=== PATIENT | female | born 1970 ===

== ENCOUNTER 2018-07-09 18:46 | Emergency (ER) | payer BC, OTHER ==
[~2018-07-09] VITALS: Ht 162.6 cm; Wt 69.9 kg
--- OUTSIDE RECORDS SUMMARY | 2018-07-09 18:53 | XMS REPORT ---
Author Author JEN GILLILAND [facility] [place] Address [address] [place] [address] Care Team Providers Care Piper Helper Name Role Phone JEN GILLILAND Unavailable PROBLEMS Type Condition ICD9-CM Code FLJ68-FA Code Onset Dates Condition Status SNOMED Code Problem Difficulty swallowing liquids R13.10 Active 638555934 Problem Gastric reflux K21.9 Active 750147360 Problem Anxiety F41.9 Active 34374536 ALLERGIES Substance Reaction Event Type Date Status Ibuprofen angioedema Drug Allergy May, Active ENCOUNTERS Encounter Location Date Diagnosis [facility] [address] [id number] [place] [address] Jun Shortness of breath R06.02 ; Gastric reflux K21.9 and Difficulty swallowing liquids R13.10 [facility] [address] [id number] [place] [address] May [facility] [address] [id number] [place] [address] May Gastric reflux K21.9 and H. pylori infection A04.8 [facility] [address] [facility] [id number] [place] [address] May, [facility] [address] [id number] [place] [address] Mar Left breast lump N63.20 [facility] [address] [id number] [address] January, Dysuria R30.0 and Recurrent UTI (urinary tract infection) N39.0 [facility] [address] [id number] [place] [address] Sep, Multiple complaints R68.89 [facility] [address] [id number] [place] [address] Jun, Urinary frequency R35.0 ; Multiple complaints R68.89 and Anxiety F41.9 [facility] [id number] [place] [address] Mar, Lump of left breast N63 ; Well woman exam Z01.419 and Uterine leiomyoma, unspecified location D25.9 [facility] [address]00565100[place] [address] Nov, Bronchitis J40 [facility] [address] [place] [address] [id number][place] [id number] Oct, [facility] [address]65100[place] [address] Oct, Sore throat J02.9 and Acute upper respiratory infection J06.9 [place] [address] [id number] SPRINGS[place] [address] Jul, Encounter for immunization Z23 [place] [address] [id number] [place] [address] Jun, Dizziness R42 [place] [address] [id number] SPRINGS[place] [address] Jun, Dizziness R42 and Anemia due to other cause, not classified D64.89 [facility] [address] [id number] [place]INGS[place] [id number] January, Anemia due to other cause, not classified D64.89 and Abnormal urine R82.90 [facility] [address] [facility] [id number], [place] [id number] Dec, [facility] [address] [id number] [place] [address] Dec, Abnormal urine R82.90 ; Acute cystitis with hematuria N30.01 and Iron deficiency E61.1 [facility] [address] [id number] SPRINGS[place] [address] Dec, [facility] [address] [facility] [id number] [place] [id number] Dec, Anemia due to other cause, not classified D64.89 [facility] [address] [place] [id number] [address] Dec, [place] [address] [id number] SPRINGS[place] [address] Dec, Anemia due to other cause, not classified D64.89 [place] [address] [id number] SPRINGS[place] [id number] Dec, [place] [address] [id number] [place] [id number] Dec, Anemia due to other cause, not classified D64.[address] [id number] SPRINGS, [place] [address] Dec, Gastroesophageal reflux disease, esophagitis presence not specified K21.9 and Anemia due to other cause, not classified D64.89 [place] [address] [id number] SPRINGS[place] [address] Nov, Prolonged menstrual cycle N92.1 ; Dizziness R42 ; GERD ( gastroesophageal reflux disease) K21.9 ; Chest pain R07.9 ; Fatigue R53.83 and Chills (without fever) R68.83 [place] [address] [id number] SPRINGS[place] [address] Nov, Prolonged menstrual cycle N92.1 ; Dizziness R42 ; GERD ( gastroesophageal reflux disease) K21.9 ; Chest pain R07.9 ; Fatigue R53.83 and Chills (without fever) R68.83 [place] [address] [id number] [place]INGS[place] [address] Jun, Encounter for immunization Z23 [place] [address] [id number] SPR[place] [id number] Jun, Allergic rhinitis, unspecified allergic rhinitis type J30.9 and Post-nasal drip R09.[address] [facility] [address] [id number] [place] [address] Apr, Chest pain 786.50 and GERD (gastroesophageal reflux disease) 530.[address] [id number] [place] [address] Feb, Well woman exam V70.0 ; Pap smear for cervical cancer screening V76.2 and Breast cancer screening V76.[address] [id number], [place] [address] 08 Feb, 2015 Encounter to establish care V65.8 IMMUNIZATIONS No Known Immunizations SOCIAL HISTORY Never Assessed REASON FOR VISIT ER f/u-SOB, chest pressure-Patient states she went to ER Wednesday, states her legs were weak. She was dx with acid reflux and anxiety, pt states she is having SOB and burping today but no pain. Ashley RN PLAN OF CARE Activity Details Follow Up 4 Weeks Reason:GERD F/U Pending Test H PYLORI (IN HOUSE) VITAL SIGNS Height 5 ft 3 in in 2018-06-15 Weight 153.6 lbs 2018-06-15 Temperature 98.1 degrees Fahrenheit 2018-06-15 Heart Rate 77 bpm 2018-06-15 Respiratory Rate 16 2018-06-15 Oximetry 99 % 2018-06-15 BMI 27.21 kg/m2 2018-06-15 Blood pressure systolic 110 mmHg 2018-06-15 Blood pressure diastolic 70 mmHg 2018-06-15 MEDICATIONS Medication Instructions Dosage Frequency Start Date End Date Duration Status Pantoprazole Sodium 20 mg Orally Once a day 1 tablet 24h May, 30 day(s) Active Amoxicillin 500 mg Orally 2 times a day 2 tablet 12h May, Jun, 14 days Active Clarithromycin 500 mg Orally every 12 hrs 1 tablet 12h May,Jun 14 days Active RESULTS Name Result Date Reference Range LIPASE 2018-06-15 LIPASE 29 7-60 AMYLASE 2018-06-15 AMYLASE 40 21-101 PROCEDURES Procedure Date Ordered Result Body Site IMMUNOASSAY,INFECTIOUS AGENT Jun 15, 2018 ASSAY OF AMYLASE Jun 15, 2018 ASSAY OF LIPASE Jun 15, 2018 INSTRUCTIONS MEDICATIONS ADMINISTERED No Known Medications MEDICAL (GENERAL) HISTORY Type Description Date Medical History acid reflux Medical History seasonal allergies Medical History anemia Surgical History No Surgical history information Hospitalization History Abnormal vaginal bleeding
--- OUTSIDE RECORDS SUMMARY | 2018-07-09 18:53 | XMS REPORT ---
Author Author MARIANNE JOSE [facility] Address [address] [place] [address] Care Team Providers Care Compressor Station Chief Engineer Name Role Phone MARIANNE JOSE Unavailable PROBLEMS Type Condition ICD9-CM Code PNH24-UO Code Onset Dates Condition Status SNOMED Code Problem Difficulty swallowing liquids R13.10 Active 358044482 Problem Gastric reflux K21.9 Active 980994866 Problem Anxiety F41.9 Active 85841519 ALLERGIES No Information ENCOUNTERS Encounter Location Date Diagnosis [facility] [address] [id number] [place] [address] 05 Jun Shortness of breath R06.02 ; Gastric reflux K21.9 and Difficulty swallowing liquids R13.10 [facility] [address] [id number] [place] [address] 25 May [place] [address] [id number] [place] [address] 19 May Gastric reflux K21.9 and H. pylori infection A04.8 [facility] [address] [facility] [id number], [place] [address] May, [facility] [address] [id number] [place] [address] Mar Left breast lump N63.20 [facility] [address] [id number] [address] January, Dysuria R30.0 and Recurrent UTI (urinary tract infection) N39.0 [facility] [address] [id number] [place] [address] Sep, Multiple complaints R68.89 [facility] [address] [id number] [place] [address] Jun, Urinary frequency R35.0 ; Multiple complaints R68.89 and Anxiety F41.9 [facility] [address] [place], [place] [id number] [place] [address] Mar, Lump of left breast N63 ; Well woman exam Z01.419 and Uterine leiomyoma, unspecified location D25.9 [facility] [address]00565100[place], [place] [address] Nov, Bronchitis J40 [facility] [address] [place] [address] [id number], [place] [id number] Oct, [facility] [address] [place] [id number] Oct, Sore throat J02.9 and Acute upper respiratory infection J06.9 [place] [address] [id number] [place] [address] Jul, Encounter for immunization Z23 [facility] [address] [id number] [place] [id number] Jun, Dizziness R42 [place] [id number] [place] [address] Jun, Dizziness R42 and Anemia due to other cause, not classified D64.89 [facility] [address] [facility] [id number] [place] [address] January, Anemia due to other cause, not classified D64.89 and Abnormal urine R82.90 [facility] [address] [facility] [id number][place] [id number] Dec, [facility] [address] [id number] [place] [phone] Dec, Abnormal urine R82.90 ; Acute cystitis with hematuria N30.01 and Iron deficiency E61.1 [facility] [address] [id number] [place] [address] Dec, [facility] [id number] [place] [address] Dec, Anemia due to other cause, not classified D64.89 [facility] [address] [facility] [id number] [place] [address] Dec, [place] [address] [id number] [place] [address] Dec, Anemia due to other cause, not classified D64.89 [place] [address] [id number] [place] [address] Dec, [place] [address] [id number] [place] [address] Dec, Anemia due to other cause, not classified D64.89 [facility] [address] [facility] [id number] [place] [id number] Dec, Gastroesophageal reflux disease, esophagitis presence not specified K21.9 and Anemia due to other cause, not classified D64.89 [place] [address] [id number] [place] [address] Nov, Prolonged menstrual cycle N92.1 ; Dizziness R42 ; GERD ( gastroesophageal reflux disease) K21.9 ; Chest pain R07.9 ; Fatigue R53.83 and Chills (without fever) R68.83 [place] [address] [id number] [place] [address] Nov, Prolonged menstrual cycle N92.1 ; Dizziness R42 ; GERD ( gastroesophageal reflux disease) K21.9 ; Chest pain R07.9 ; Fatigue R53.83 and Chills (without fever) R68.83 [place] [address] [id number] [place] [address] Jun, Encounter for immunization Z23 [place] [address] [id number] [place] [address] Jun, Allergic rhinitis, unspecified allergic rhinitis type J30.9 and Post-nasal drip R09.[address] [id number], [place] [address] Apr, Chest pain 786.50 and GERD (gastroesophageal reflux disease) 530.81 [place] [id number] [place] [id number] Feb, Well woman exam V70.0 ; Pap smear for cervical cancer screening V76.2 and Breast cancer screening V76.10 [place] [id number] [place] [id number] Feb, Encounter to establish care V65.8 IMMUNIZATIONS No Known Immunizations SOCIAL HISTORY Never Assessed REASON FOR VISIT Requests return call PLAN OF CARE VITAL SIGNS MEDICATIONS No Known Medications RESULTS No Results PROCEDURES No Known procedures INSTRUCTIONS MEDICATIONS ADMINISTERED No Known Medications MEDICAL (GENERAL) HISTORY Type Description Date Medical History acid reflux Medical History seasonal allergies Medical History anemia Surgical History No Surgical history information Hospitalization History Abnormal vaginal bleeding
--- OUTSIDE RECORDS SUMMARY | 2018-07-09 18:53 | XMS REPORT ---
Author BRADEN Jesus Organization [employer] Address Unknown Phone Unavailable Care Team Providers Care Lard Renderer Name Role Phone BRADEN BROWN CP Unavailable Allergies, Adverse Reactions, Alerts Substance Reaction Event Type Tylenol hives Drug Allergy Problems Problem Type Condition Code Onset Dates Condition Status Assessment Allergic rhinitis, unspecified allergic rhinitis type J30.9 Active Assessment Post-nasal drip R09.82 Active Medications Medication Code System Code Instructions Start Date End Date Status Dosage Cetirizine HCl [facility] [address]-42 10 MG Orally Once a day Jul 22, 2015 Oct 20, 2015 1 tablet as needed Prevacid 24HR [facility] [address]-71 15 MG Orally Once a day 1 capsule Procedures Procedure Coding System Code Date Office Visit, Est Pt., Level 3 CPT-4 19328 Jul 22, 2015 MEASURE BLOOD OXYGEN LEVEL CPT-4 64152 Jul 22, 2015 Vital Signs Date/Time: Jul 22, 2015 Temperature 98.0 F Weight 157 lbs Height 5 ft 3 in in Oximetry 98 % Blood Pressure Diastolic 76 mmHg Blood Pressure Systolic 120 mmHg Cardiac Monitoring Heart Rate 88 bpm BMI 27.81 Index Results No Known Results Summary Purpose [employer] Submission
--- OUTSIDE RECORDS SUMMARY | 2018-07-09 18:53 | XMS REPORT ---
Author Author MARIANNE JOSE [facility] Address [address] [place] [address] Care Team Providers Care Administrative Services Assistant Name Role Phone MARIANNE JOSE Unavailable PROBLEMS Type Condition ICD9-CM Code GOZ22-ZN Code Onset Dates Condition Status SNOMED Code Problem Gastric reflux K21.9 Active 774513241 Problem Anxiety F41.9 Active 37459797 ALLERGIES No Information ENCOUNTERS Encounter Location Date Diagnosis [facility] [address] [id number] [place] [address] May [facility] [address] [id number] [place] [address] May Gastric reflux K21.9 and H. pylori infection A04.8 [facility] [address] [facility] [id number] [address] May, [facility] [address] [id number] [place] [address] Mar Left breast lump N63.20 [facility] [id number] [place] [address] January, Dysuria R30.0 and Recurrent UTI (urinary tract infection) N39.0 [facility] [address] [id number] [place] [address] Sep, Multiple complaints R68.89 [facility] [address] [id number] [place] [address] Jun, Urinary frequency R35.0 ; Multiple complaints R68.89 and Anxiety F41.9 [facility] [address] [id number] [place] [address] Mar, Lump of left breast N63 ; Well woman exam Z01.419 and Uterine leiomyoma, unspecified location D25.9 [facility] [address] [facility] [id number], [place] [address] Nov, Bronchitis J40 [facility] [address] [place] [address] [id number], [place] [id number] 10 Oct, 2016 [facility] [address] [place] [id number] [address] 08 Oct, 2016 Sore throat J02.9 and Acute upper respiratory infection J06.9 [place] [address] [id number] [place] [address] Jul, Encounter for immunization Z23 [place] [address] [id number] [place] [address] Jun, Dizziness R42 [place] [address] [id number] [place] [address] Jun, Dizziness R42 and Anemia due to other cause, not classified D64.89 [place] [address] [id number] [place] [address] January, Anemia due to other cause, not classified D64.89 and Abnormal urine R82.90 [facility] [address] [facility] [id number], [place] [id number] Dec, [facility] [address] [id number] [place] [address] Dec, Abnormal urine R82.90 ; Acute cystitis with hematuria N30.01 [address] Iron deficiency E61.1 [facility] [address] [id number] [place] [address] Dec, [facility] [id number] [place] [address] Dec, Anemia due to other cause, not classified D64.89 [facility] [address] [place] [id number] [place] [address] Dec, [place] [address] [id number] [place] [address] Dec, Anemia due to other cause, not classified D64.89 [place] [address] [id number] [place] [address] Dec, [place] [address] [id number] [place] [address] Dec, Anemia due to other cause, not classified D64.89 [facility] [address] [facility] [id number] [place] [address] Dec, Gastroesophageal reflux disease, esophagitis presence not specified K21.9 and Anemia due to other cause, not classified D64.89 [place] [address] [id number] [place] [address] Nov, Prolonged menstrual cycle N92.1 ; Dizziness R42 ; GERD ( gastroesophageal reflux disease) K21.9 ; Chest pain R07.9 ; Fatigue R53.83 and Chills (without fever) R68.83 [place] [address] [id number] [place] [address] Nov, Prolonged menstrual cycle N92.1 ; Dizziness R42 ; GERD ( gastroesophageal reflux disease) K21.9 ; Chest pain R07.9 ; Fatigue R53.83 and Chills (without fever) R68.83 [place] [address] [id number] [place] [address] Jun, Encounter for immunization Z23 [place] [address] [id number] [place] [address] Jun, Allergic rhinitis, unspecified allergic rhinitis type J30.9 and Post-nasal drip R09.82 [facility] [address] [id number], [place] [address] Apr, Chest pain 786.50 and GERD (gastroesophageal reflux disease) 530.81 [facility] [address] [place] [address] [id number], [place] [id number] Feb, Well woman exam V70.0 ; Pap smear for cervical cancer screening V76.2 and Breast cancer screening V76.[address] [id number] [place] [id number] 08 Feb, 2015 Encounter to establish care V65.8 IMMUNIZATIONS No Known Immunizations SOCIAL HISTORY Never Assessed REASON FOR VISIT ER note PLAN OF CARE VITAL SIGNS MEDICATIONS Unknown Medications RESULTS No Results PROCEDURES No Known procedures INSTRUCTIONS MEDICATIONS ADMINISTERED No Known Medications MEDICAL (GENERAL) HISTORY Type Description Date Medical History acid reflux Medical History seasonal allergies Medical History anemia Surgical History No Surgical history information Hospitalization History Abnormal vaginal bleeding
--- OUTSIDE RECORDS SUMMARY | 2018-07-09 18:53 | XMS REPORT ---
Author Author MARIANNE JOSE [facility] Address [address] [place] [address] Care Team Providers Care Bead Cutter Name Role Phone MARIANNE JOSE Unavailable PROBLEMS Type Condition ICD9-CM Code [id number] Code Onset Dates Condition Status SNOMED Code Problem Anxiety F41.9 Active 06003699 ALLERGIES Substance Reaction Event Type Date Status Ibuprofen angioedema Drug Allergy Mar, Active ENCOUNTERS Encounter Location Date Diagnosis [facility] [address] [id number] [place] [address] Mar Left breast lump N63.20 [facility] [address] [place] [id number] [place] [address] January, Dysuria R30.0 and Recurrent UTI (urinary tract infection) N39.0 [facility] [address] [place] [id number] [place] [address] Sep, Multiple complaints R68.89 [facility] [address] [place], [place] [id number] [address] Jun, Urinary frequency R35.0 ; Multiple complaints R68.89 and Anxiety F41.9 [facility] [address] [place], [place] [id number] [place] [address] Mar, Lump of left breast N63 ; Well woman exam Z01.419 and Uterine leiomyoma, unspecified location D25.9 [facility] [address] [address] Nov, Bronchitis J40 [facility] [address] [place] [address] [id number] 10 Oct, 2016 [facility] [address] [id number] [address] 08 Oct, 2016 Sore throat J02.9 and Acute upper respiratory infection J06.9 [address] [id number] [id number] Jul, Encounter for immunization Z23 [place] [address] [id number] R[place] [address] Jun, Dizziness R42 [place] [id number] [place] [id number] Jun, Dizziness R42 and Anemia due to other cause, not classified D64.89 [place] [address] [id number] [place] [id number] January, Anemia due to other cause, not classified D64.89 and Abnormal urine R82.[address] [id number] [address] Dec, [place] [address] [id number] [place] [id number] Dec, Abnormal urine R82.90 ; Acute cystitis with hematuria N30.01 and Iron deficiency E61.1 [place] [address] [id number] [place] [id number] Dec, [id number] [id number] Dec, Anemia due to other cause, not classified D64.89 [address]00565100[place] [address] Dec, [place] [address] [id number] [place] [id number] Dec, Anemia due to other cause, not classified D64.89 [place] [id number] [place] [id number] Dec, [place] [address] [id number] [place] [address] Dec, Anemia due to other cause, not classified D64.89 [facility] [address] [facility] [id number] [place] [id number] Dec, Gastroesophageal reflux disease, esophagitis presence not specified K21.9 and Anemia due to other cause, not classified D64.89 [facility] [address] [id number] [place] [id number] Nov, Prolonged menstrual cycle N92.1 ; Dizziness R42 ; GERD ( gastroesophageal reflux disease) K21.9 ; Chest pain R07.9 ; Fatigue R53.83 and Chills (without fever) R68.83 [address] [address] [id number] [place] [address] Nov, Prolonged menstrual cycle N92.1 ; Dizziness R42 ; GERD ( gastroesophageal reflux disease) K21.9 ; Chest pain R07.9 ; Fatigue R53.83 and Chills (without fever) R68.83 [place] [id number] [place] [id number] Jun, Encounter for immunization Z23 [place] [id number] [place] [id number] Jun, Allergic rhinitis, unspecified allergic rhinitis type J30.9 and Post-nasal drip R09.[address] [id number] [place] [address] Apr, Chest pain 786.50 and GERD (gastroesophageal reflux disease) 530.[address] [id number] [place] [address] Feb, Well woman exam V70.0 ; Pap smear for cervical cancer screening V76.2 and Breast cancer screening V76.[address] [id number] [place] [address] Feb, Encounter to establish care V65.8 IMMUNIZATIONS No Known Immunizations SOCIAL HISTORY Never Assessed REASON FOR VISIT breast check, sore-Patient states that she has a lump/bump under left breast, states she's had mammo and it was normal. States she is also having some nipple pain, has been there x1 month. Ashley RN PLAN OF CARE Activity Details Follow Up prn Reason: VITAL SIGNS Height 5 ft 3 in in 2018-04-14 Weight 154.1 lbs 2018-04-14 Temperature 97.6 degrees Fahrenheit 2018-04-14 Heart Rate 84 bpm 2018-04-14 Respiratory Rate 18 2018-04-14 Oximetry 99 % 2018-04-14 BMI 27.29 kg/m2 2018-04-14 Blood pressure systolic 116 mmHg 2018-04-14 Blood pressure diastolic 72 mmHg 2018-04-14 MEDICATIONS No Known Medications RESULTS Name Result Date Reference Range Mammogram Dx, Left 2018-04-10 PROCEDURES No Known procedures INSTRUCTIONS MEDICATIONS ADMINISTERED No Known Medications MEDICAL (GENERAL) HISTORY Type Description Date Medical History acid reflux Medical History seasonal allergies Medical History anemia Hospitalization History Abnormal vaginal bleeding
--- OUTSIDE RECORDS SUMMARY | 2018-07-09 18:53 | XMS REPORT ---
Author Author SB TYLER [facility] Address [address] [place] [address] Care Team Providers Care Parking Analyst Name Role Phone SB TYLER Unavailable PROBLEMS Type Condition ICD9-CM Code AOY60-TU Code Onset Dates Condition Status SNOMED Code Problem Anxiety F41.9 Active 70897698 ALLERGIES Substance Reaction Event Type Date Status Ibuprofen angioedema Drug Allergy January, Active ENCOUNTERS Encounter Location Date Diagnosis [facility] [address] [id number] [place] [address] Mar Left breast lump N63.20 [facility] [address] [place], [place] [id number] [address] January, Dysuria R30.0 and Recurrent UTI (urinary tract infection) N39.0 [facility] [address] [place], [place] [id number] [address] Sep, Multiple complaints R68.89 [facility] [address] [place], [place] [id number] [place] [address] Jun, Urinary frequency R35.0 ; Multiple complaints R68.89 and Anxiety F41.9 [facility] [address] [place] [id number] [address] Mar, Lump of left breast N63 ; Well woman exam Z01.419 and Uterine leiomyoma, unspecified location D25.9 [facility] [address]65100[place], [place] [address] Nov, [address]40 [facility] [place] [address] [place] [id number] [id number] 10 Oct, 2016 [facility] [address] [id number] [address] 08 Oct, 2016 Sore throat J02.9 and Acute upper respiratory infection J06.9 [address] [address] [id number] [place] [id number] Jul, Encounter for immunization Z23 [address] [address] [id number] [place] [address] Jun, Dizziness R42 [address] [address] [id number] [place] [address] Jun, Dizziness R42 and Anemia due to other cause, not classified D64.89 [place] [id number] [place] [id number] January, Anemia due to other cause, not classified D64.89 and Abnormal urine R82.[address] [id number][place] [address] Dec, [address] [address] [id number] [place] [address] Dec, Abnormal urine R82.90 ; Acute cystitis with hematuria N30.01 and Iron deficiency E61.1 [place] [address] [id number] [place] [address] Dec, [id number] [address] Dec, Anemia due to other cause, not classified D64.89 [address]00565100[place] [address] Dec, [place] [address] [id number] [place] [id number] Dec, Anemia due to other cause, not classified D64.89 [place] [address] [id number] [place] [id number] Dec, [address] [address] [id number] [place] [id number] Dec, Anemia due to other cause, not classified D64.89 [facility] [facility] [address] [facility] [id number] [place] [id number] Dec, Gastroesophageal reflux disease, esophagitis presence not specified K21.9 and Anemia due to other cause, not classified D64.89 [facility] [address] [id number] [place] [id number] Nov, Prolonged menstrual cycle N92.1 ; Dizziness R42 ; GERD ( gastroesophageal reflux disease) K21.9 ; Chest pain R07.9 ; Fatigue R53.83 and Chills (without fever) R68.83 [place] [id number] [place] [id number] Nov, Prolonged menstrual cycle N92.1 ; Dizziness R42 ; GERD ( gastroesophageal reflux disease) K21.9 ; Chest pain R07.9 ; Fatigue R53.83 and Chills (without fever) R68.83 [place] [id number] [place], [place] [id number] Jun, Encounter for immunization Z23 [place] [id number] [place] [id number] Jun, Allergic rhinitis, unspecified allergic rhinitis type J30.9 and Post-nasal drip R09.[address] [id number][place] [id number] Apr, Chest pain 786.50 and GERD (gastroesophageal reflux disease) 530.[address] [id number][place] [address] Feb, Well woman exam V70.0 ; Pap smear for cervical cancer screening V76.2 and Breast cancer screening V76.[address] [id number], [place] [address] Feb, Encounter to establish care V65.8 IMMUNIZATIONS No Known Immunizations SOCIAL HISTORY Never Assessed REASON FOR VISIT pain in right side 2 days ago, states she peed a large amount. onsunday she had severe pain in the right pelvic area, and body aches:BERNABE Gilbert PLAN OF CARE Activity Details Follow Up prn Reason: VITAL SIGNS Height 5 ft 3 in in 2018-02-10 Weight 154 lbs 2018-02-10 Temperature 98 degrees Fahrenheit 2018-02-10 Heart Rate 80 bpm 2018-02-10 Respiratory Rate 16 2018-02-10 BMI 27.28 kg/m2 2018-02-10 Blood pressure systolic 118 mmHg 2018-02-10 Blood pressure diastolic 62 mmHg 2018-02-10 MEDICATIONS Medication Instructions Dosage Frequency Start Date End Date Duration Status Tylenol 325 MG Orally every 6 hrs 2 tablets as needed 6h Active Loratadine 10 MG Orally Once a day 1 capsule 24h Active Bactrim DS 800-160 MG Orally Twice a day 1 tablet 12h January,January 07 days Active Polysaccharide Iron Complex 150 MG Orally 2 times a day 1 capsule 12h Dec, 30 day(s) Not-Taking Lansoprazole 3 MG/ML Orally 2 times a day 5ml 12h Dec, 30 day(s ) Not-Taking Prevacid 24HR 15 MG Orally Once a day 1 capsule 24h Not-Taking RESULTS No Results PROCEDURES Procedure Date Ordered Result Body Site URINALYSIS, AUTO, W/O SCOPE February 10, 2018 URINE CULTURE/COLONY COUNT February 10, 2018 INSTRUCTIONS MEDICATIONS ADMINISTERED No Known Medications MEDICAL (GENERAL) HISTORY Type Description Date Medical History acid reflux Medical History seasonal allergies Medical History anemia Hospitalization History Abnormal vaginal bleeding
--- OUTSIDE RECORDS SUMMARY | 2018-07-09 18:54 | XMS REPORT ---
Author Author ALLYSSA ROLLINS [facility] eClinicalWorks Address Unknown Phone Unavailable Care Team Providers Care Occupational Health Specialist Name Role Phone ALLYSSA ROLLINS Unavailable Allergies No Known Allergies Problems No Known Problems Medications Medication Code System Code Instructions Start Date End Date Status [facility]osage [facility] [address]-36 500 MG Orally Twice a day January 20, 2016 January 27, 2016 1 tablet Results No Known Results Summary Purpose eClinicalWorks Submission
--- OUTSIDE RECORDS SUMMARY | 2018-07-09 18:54 | XMS REPORT ---
Author Author ALY GALICIA [facility] eClinicalWorks Address Unknown Phone Unavailable Care Team Providers Care Senior Sustainability Consultant Name Role Phone ALY GALICIA CP Unavailable Allergies, Adverse Reactions, Alerts Substance Reaction Event Type Tylenol hives Drug Allergy Problems Problem Type Condition ICD-9 Code Onset Dates Condition Status Assessment Chest pain 786.50 Active Assessment GERD (gastroesophageal reflux disease) 530.81 Active Medications Medication Code System Code Instructions Start Date End Date Status Dosage Prevacid 24HR [facility] [address]-99 15 MG Orally Once a day 1 capsule Procedures Procedure Coding System Code Date Office Visit, Est Pt., Level 3 CPT-4 07780 May 23, 2015 Vital Signs Date/Time: May 23, 2015 Temperature 98.2 F Weight 155 lbs Height 5 ft 3 in in BMI 27.45 Index Blood Pressure Diastolic 72 mmHg Blood Pressure Systolic 116 mmHg Cardiac Monitoring Heart Rate 78 bpm Results No Known Results Summary Purpose eClinicalWorks Submission
--- OUTSIDE RECORDS SUMMARY | 2018-07-09 18:54 | XMS REPORT ---
Author Author ARSEN ARREDONDO Organization e[employer] Address Unknown Phone Unavailable Care Team Providers Care Information Technology Audit Manager Name Role Phone ARSEN ARREDONDO CP Unavailable Allergies No Known Allergies Problems Problem Type Condition Code Onset Dates Condition Status Assessment Anemia due to other cause, not classified D64.89 Active Medications No Known Medications Results No Known Results Summary Purpose eClinicalWorks Submission
--- OUTSIDE RECORDS SUMMARY | 2018-07-09 18:54 | XMS REPORT ---
Author Author KAVIN BLANCO Organization e[employer] Address Unknown Phone Unavailable Care Team Providers Care Agency Sales Management Assistant Name Role Phone KAVIN BLANCO Unavailable Allergies No Known Allergies Problems Problem Type Condition Code Onset Dates Condition Status Assessment Encounter for immunization Z23 Active Medications No Known Medications Procedures Procedure Coding System Code Date SINGLE IMMUNIZATION ADMIN CPT-4 20838 Aug 18, 2016 FLUARIX QUAD P-FREE 3 AND UP .50 2015 CPT-4 82899 Aug 18, 2016 Results No Known Results Immunizations Vaccine Administration Date FLUARIX QUAD P-FREE 3 AND UP .50 2015Aug 18, 2016 Summary Purpose eClinicalWorks Submission
--- OUTSIDE RECORDS SUMMARY | 2018-07-09 18:54 | XMS REPORT ---
Author Author SB TYLER [facility] Address [address] [place] [address] Care Team Providers Care Chromium Plater Name Role Phone SB TYLER Unavailable PROBLEMS Type Condition ICD9-CM Code DMT30-AH Code Onset Dates Condition Status SNOMED Code Problem Anxiety F41.9 Active 76987279 ALLERGIES Substance Reaction Event Type Date Status Ibuprofen angioedema Drug Allergy Nov, Active ENCOUNTERS Encounter Location Date Diagnosis [facility] [address] [place], [place] [id number] [place] [address] Sep, Multiple complaints R68.89 [facility] [address] [place] [id number] [place] [address] Jun, Urinary frequency R35.0 ; Multiple complaints R68.89 and Anxiety F41.9 [facility] [address] [place] [address] [place] [address] Mar, Lump of left breast N63 ; Well woman exam Z01.419 and Uterine leiomyoma, unspecified location D25.9 [facility] [place] [address]00565100[place] [address] Nov, Bronchitis J40 [facility] [address] [place], [place] [address] [place] [phone] Oct, [facility] [place] [id number] [place] [address] 08 Oct, 2016 Sore throat J02.9 and Acute upper respiratory infection J06.9 [facility] [address] [id number] [id number] Jul, Encounter for immunization Z23 [facility] [address] [id number], [place] [id number] Jun, Dizziness R42 [facility] [address] [id number], [place] [id number] Jun, Dizziness R42 and Anemia due to other cause, not classified D64.89 [facility] [address] [id number], [place] [id number] January, Anemia due to other cause, not classified D64.89 and Abnormal urine R82.[address] [id number], [place] [id number] Dec, [facility] [address] [id number], [place] [id number] Dec, Abnormal urine R82.90 ; Acute cystitis with hematuria N30.01 and Iron deficiency E61.1 [place] [id number], [place] [id number] Dec, [place] [address] [facility] [id number], [place] [id number] Dec, Anemia due to other cause, not classified D64.89 [facility] [address] [facility] [id number], [place] [id number] Dec, [place] [address] [id number], [place] [id number] Dec, Anemia due to other cause, not classified D64.89 [facility] [address] [id number], [place] [id number] Dec, [place] [id number], [place] [id number] Dec, Anemia due to other cause, not classified D64.89 [place] [address] [facility] [id number], [place] [id number] Dec, Gastroesophageal reflux disease, esophagitis presence not specified K21.9 and Anemia due to other cause, not classified D64.89 [place] [id number], [place] [id number] Nov, Prolonged menstrual cycle N92.1 ; Dizziness R42 ; GERD ( gastroesophageal reflux disease) K21.9 ; Chest pain R07.9 ; Fatigue R53.83 and Chills (without fever) R68.83 [facility] [address] [id number], [place] [id number] Nov, Prolonged menstrual cycle N92.1 ; Dizziness R42 ; GERD ( gastroesophageal reflux disease) K21.9 ; Chest pain R07.9 ; Fatigue R53.83 and Chills (without fever) R68.83 [place] [place] [id number], [place] [id number] Jun, Encounter for immunization Z23 [place] [id number], [place] [id number] Jun, Allergic rhinitis, unspecified allergic rhinitis type J30.9 and Post-nasal drip R09.[address] [id number], [place] [id number] Apr, Chest pain 786.50 and GERD (gastroesophageal reflux disease) 530.81 [address] [place] [place] [id number] Feb, Well woman exam V70.0 ; Pap smear for cervical cancer screening V76.2 and Breast cancer screening V76.10 [address] [place] [id number] [place] [id number] Feb, Encounter to establish care V65.8 IMMUNIZATIONS No Known Immunizations SOCIAL HISTORY Never Assessed REASON FOR VISIT Prod.Cough, dyspnea, fatique and fever of 100.3/ M. Anne Marie Plunkett. PLAN OF CARE VITAL SIGNS Height 5 ft 3 in in 2016-12-23 Weight 153.8 lbs 2016-12-23 Temperature 98.8 degrees Fahrenheit 2016-12-23 Heart Rate 92 bpm 2016-12-23 Respiratory Rate 18 2016-12-23 Oximetry 98 % 2016-12-23 BMI 27.24 kg/m2 2016-12-23 Blood pressure systolic 102 mmHg 2016-12-23 Blood pressure diastolic 60 mmHg 2016-12-23 MEDICATIONS Medication Instructions Dosage Frequency Start Date End Date Duration Status Loratadine 10 MG Orally Once a day 1 capsule 24h Active Ciprofloxacin HCl 500 mg Orally Twice a day 1 tablet 12h 29 Nov, 2016 Dec, 07 days Active Robitussin CoughGels Active Tylenol 325 MG Orally every 6 hrs 2 tablets as needed 6h Active RESULTS No Results PROCEDURES Procedure Date Ordered Result Body Site MEASURE BLOOD OXYGEN LEVEL December 23, 2016 INSTRUCTIONS MEDICATIONS ADMINISTERED No Known Medications MEDICAL (GENERAL) HISTORY Type Description Date Medical History acid reflux Medical History seasonal allergies Medical History anemia Hospitalization History Abnormal vaginal bleeding
--- OUTSIDE RECORDS SUMMARY | 2018-07-09 18:54 | XMS REPORT ---
Author Author NAYELI SB Organization [facility] Address [address] [place] [address] Care Team Providers Care Sql Database Developer Name Role Phone SB YTLER Unavailable PROBLEMS Type Condition ICD9-CM Code IEL19-UD Code Onset Dates Condition Status SNOMED Code Problem Anxiety F41.9 Active [id number] ALLERGIES No Information ENCOUNTERS Encounter Location Date Diagnosis [facility] [address] [place] [id number] [place] [phone] January, Dysuria R30.0 and Recurrent UTI (urinary tract infection) N39.0 [facility] [address] [place] [id number] [place] [phone] Sep, Multiple complaints R68.89 [facility] [address] [place] [id number] [place] [phone] Jun, Urinary frequency R35.0 ; Multiple complaints R68.89 and Anxiety F41.9 [facility] [address] [place], [place] [id number] [place] [phone] Mar, Lump of left breast N63 ; Well woman exam Z01.419 and Uterine leiomyoma, unspecified location D25.9 [facility] [address] [address] Nov, Bronchitis J40 [facility] [address] [place] [address] [place] [id number] 10 Oct, 2016 [facility] [address] [place] [address] 08 Oct, 2016 Sore throat J02.9 and Acute upper respiratory infection J06.9 [facility] [address] [id number][place] [phone] Jul, Encounter for immunization Z23 [place] [address] [id number][place] [id number] Jun, Dizziness R42 [place] [address] [id number], [place] [id number] Jun, Dizziness R42 and Anemia due to other cause, not classified D64.89 [place] [address] [id number][place] [id number] January, Anemia due to other cause, not classified D64.89 and Abnormal urine R82.[address] [id number], [place] [phone] Dec, [facility] [address] [id number], [place] [id number] Dec, Abnormal urine R82.90 ; Acute cystitis with hematuria N30.01 and Iron deficiency E61.1 [place] [address] [id number], [place] [id number] Dec, [place] [id number], [place] [phone] Dec, Anemia due to other cause, not classified D64.89 [facility] [address] [id number], [place] [phone] Dec, [place] [address] [id number], [place] [id number] Dec, Anemia due to other cause, not classified D64.89 [place] [address] [id number], [place] [id number] Dec, [place] [address] [id number], [place] [id number] Dec, Anemia due to other cause, not classified D64.89 [facility] [id number], [place] [phone] Dec, Gastroesophageal reflux disease, esophagitis presence not specified K21.9 and Anemia due to other cause, not classified D64.89 [place] [address] [id number], [place] [id number] Nov, Prolonged menstrual cycle N92.1 ; Dizziness R42 ; GERD ( gastroesophageal reflux disease) K21.9 ; Chest pain R07.9 ; Fatigue R53.83 and Chills (without fever) R68.83 [place] [address] [id number], [place] [id number] Nov, Prolonged menstrual cycle N92.1 ; Dizziness R42 ; GERD ( gastroesophageal reflux disease) K21.9 ; Chest pain R07.9 ; Fatigue R53.83 and Chills (without fever) R68.83 [place] [address] [id number], [place] [id number] Jun, Encounter for immunization Z23 [place] [address] [id number], [place] [id number] Jun, Allergic rhinitis, unspecified allergic rhinitis type J30.9 and Post-nasal drip R09.82 [place] [address] [place] [phone] Apr, Chest pain 786.50 and GERD (gastroesophageal reflux disease) 530.[address] [place] [phone] Feb, Well woman exam V70.0 ; Pap smear for cervical cancer screening V76.2 and Breast cancer screening V76.[address] [id number] [place] [phone] Feb, Encounter to establish care V65.8 IMMUNIZATIONS No Known Immunizations SOCIAL HISTORY Never Assessed REASON FOR VISIT Lab- [facility] PLAN OF CARE VITAL SIGNS MEDICATIONS No Known Medications RESULTS Name Result Date Reference Range CBC 2017-10-20 WHITE BLOOD CELL COUNT 5.2 3.8-10.8 RED BLOOD CELL COUNT 4.55 3.80-5.10 HEMOGLOBIN 13.0 11.7-15.5 HEMATOCRIT 39.5 35.0-45.0 MCV 86.8 80.0-100.0 MCH 28.6 27.0-33.0 MCHC 32.9 32.0-36.0 RDW 13.9 11.0-15.0 PLATELET COUNT 216 140-400 MPV 9.9 7.5-12.5 ABSOLUTE NEUTROPHILS 2974 [phone] ABSOLUTE LYMPHOCYTES [phone] ABSOLUTE MONOCYTES 250 200-950 ABSOLUTE EOSINOPHILS 88 15-500 ABSOLUTE BASOPHILS 31 0-200 NEUTROPHILS 57.2 LYMPHOCYTES 35.7 MONOCYTES 4.8 EOSINOPHILS 1.7 BASOPHILS 0.6 PROCEDURES Procedure Date Ordered Result Body Site COMPLETE CBC W/AUTO DIFF WBC Oct 20, 2017 VENIPUNCT, ROUTINE* Oct 20, 2017 INSTRUCTIONS MEDICATIONS ADMINISTERED No Known Medications MEDICAL (GENERAL) HISTORY Type Description Date Medical History acid reflux Medical History seasonal allergies Medical History anemia Hospitalization History Abnormal vaginal bleeding
--- OUTSIDE RECORDS SUMMARY | 2018-07-09 18:54 | XMS REPORT ---
Author Author KAVIN Waller [facility] Address Unknown Phone Unavailable Care Team Providers Care Business Development Intern Name Role Phone KAVIN Waller Unavailable Unavailable PROBLEMS No Known Problems ALLERGIES No Information SOCIAL HISTORY Never Assessed PLAN OF CARE VITAL SIGNS MEDICATIONS Unknown Medications RESULTS No Results PROCEDURES No Known procedures IMMUNIZATIONS No Known Immunizations MEDICAL (GENERAL) HISTORY Type Description Date Medical History acid reflux Medical History seasonal allergies Medical History anemia
--- OUTSIDE RECORDS SUMMARY | 2018-07-09 18:54 | XMS REPORT ---
Author Author SB TYLER [facility] Address [address] [place] [address] Care Team Providers Care Technical Planner Name Role Phone SB TYLER Unavailable PROBLEMS Type Condition ICD9-CM Code AOU21-WU Code Onset Dates Condition Status SNOMED Code Problem Anxiety F41.9 Active 20003133 ALLERGIES Substance Reaction Event Type Date Status Ibuprofen angioedema Drug Allergy Jun, Active ENCOUNTERS Encounter Location Date Diagnosis [facility] [address] [place] [id number] [place] [address] January, Dysuria R30.0 and Recurrent UTI (urinary tract infection) N39.0 [facility] [address] [place] [address] [place] [address] Sep, Multiple complaints R68.89 [facility] [address] [place] [address] [place] [address] Jun, Urinary frequency R35.0 ; Multiple complaints R68.89 and Anxiety F41.9 [facility] [address] [place] [address] [place] [address] Mar, Lump of left breast N63 ; Well woman exam Z01.419 and Uterine leiomyoma, unspecified location D25.9 [facility] [address] [address] Nov, Bronchitis J40 [facility] [address] [place] [address] [place] [phone] 10 Oct, 2016 [facility] [address] [place] [address] 08 Oct, 2016 Sore throat J02.9 and Acute upper respiratory infection J06.9 [facility] [address] [id number], [place] [phone] Jul, Encounter for immunization Z23 [facility] [address] [id number], [place] [phone] Jun, Dizziness R42 [place] [address] [id number], [place] [id number] Jun, Dizziness R42 and Anemia due to other cause, not classified D64.89 [place] [address] [id number], [place] [id number] January, Anemia due to other cause, not classified D64.89 and Abnormal urine R82.[address] [id number] [id number] Dec, [place] [address] [id number], [place] [phone] Dec, Abnormal urine R82.90 ; Acute cystitis with hematuria N30.01 and Iron deficiency E61.1 [place] [address] [id number], [place] [id number] Dec, [place] [id number], [place] [address] Dec, Anemia due to other cause, not classified D64.89 [facility] [address] [place] [id number] [address] Dec, [place] [address] [id number], [place] [id number] Dec, Anemia due to other cause, not classified D64.89 [place] [address] [id number], [place] [phone] Dec, [facility] [address] [id number], [place] [phone] Dec, Anemia due to other cause, not classified D64.89 [place] [id number], [place] [phone] Dec, Gastroesophageal reflux disease, esophagitis presence not specified K21.9 and Anemia due to other cause, not classified D64.89 [place] [address] [id number], [place] [phone] Nov, Prolonged menstrual cycle N92.1 ; Dizziness R42 ; GERD ( gastroesophageal reflux disease) K21.9 ; Chest pain R07.9 ; Fatigue R53.83 and Chills (without fever) R68.83 [place] [address] [id number], [place] [id number] Nov, Prolonged menstrual cycle N92.1 ; Dizziness R42 ; GERD ( gastroesophageal reflux disease) K21.9 ; Chest pain R07.9 ; Fatigue R53.83 and Chills (without fever) R68.83 [place] [address] [id number], [place] [phone] Jun, Encounter for immunization Z23 [place] [address] [id number], [place] [id number] Jun, Allergic rhinitis, unspecified allergic rhinitis type J30.9 and Post-nasal drip R09.82 [place] [address] [place] [phone] Apr, Chest pain 786.50 and GERD (gastroesophageal reflux disease) 530.81 [place] [address] [place] [phone] Feb, Well woman exam V70.0 ; Pap smear for cervical cancer screening V76.2 and Breast cancer screening V76.[id number] [place] [phone] Feb, Encounter to establish care V65.8 IMMUNIZATIONS No Known Immunizations SOCIAL HISTORY Never Assessed REASON FOR VISIT Pt c/o RUQ pain intermittent with radiation to back for last month, had same pain last year; pt c/o GERD. Pt also c/o fatigue, no energy, and has hx if tinnitis and now c/o of feeling like she is going to lose her balance. Brent RN, pain is 01/04 Brent GONSALVES PLAN OF CARE Activity Details Follow Up 2 Months Reason:Fatigue, Hair Loss, Ab Pain VITAL SIGNS Height 5 ft 3 in in 2017-07-27 Weight 155.6 lbs 2017-07-27 Temperature 98.0 degrees Fahrenheit 2017-07-27 Heart Rate 90 bpm 2017-07-27 Respiratory Rate 16 2017-07-27 BMI 27.56 kg/m2 2017-07-27 Blood pressure systolic 128 mmHg 2017-07-27 Blood pressure diastolic 66 mmHg 2017-07-27 MEDICATIONS Medication Instructions Dosage Frequency Start Date End Date Duration Status Tylenol 325 MG Orally every 6 hrs 2 tablets as needed 6h Active Loratadine 10 MG Orally Once a day 1 capsule 24h Active RESULTS Name Result Date Reference Range UA LONG DIP (IN HOUSE) Lot # [id number] Exp date 07/2017 Clarity slightly cloudy Color yellow Odor none GLU neg MULUGETA neg KET neg SG 1.025 BLO neg pH 5.5 Protein neg URO 1.0 NIT neg ROHIT neg Lot # Exp date PROCEDURES Procedure Date Ordered Result Body Site URINALYSIS, AUTO, W/O SCOPE Jul 27, 2017 INSTRUCTIONS MEDICATIONS ADMINISTERED No Known Medications MEDICAL (GENERAL) HISTORY Type Description Date Medical History acid reflux Medical History seasonal allergies Medical History anemia Hospitalization History Abnormal vaginal bleeding
--- OUTSIDE RECORDS SUMMARY | 2018-07-09 18:54 | XMS REPORT ---
Author Author ARSEN ARREDONDO Organization [employer] Address Unknown Phone Unavailable Care Team Providers Care Presser All Around Name Role Phone ARSEN ARREDONDO CP Unavailable Allergies No Known Allergies Problems No Known Problems Medications No Known Medications Results No Known Results Summary Purpose [employer] Submission
--- OUTSIDE RECORDS SUMMARY | 2018-07-09 18:54 | XMS REPORT ---
Author Author ARSEN ARREDONDO Organization [employer] Address Unknown Phone Unavailable Care Team Providers Care Animal Anatomist Name Role Phone ARSEN ARREDONDO CP Unavailable Allergies No Known Allergies Problems No Known Problems Medications No Known Medications Results No Known Results Summary Purpose [employer] Submission
--- OUTSIDE RECORDS SUMMARY | 2018-07-09 18:54 | XMS REPORT ---
Author Author ALLYSSA ROLLINS [facility] [employer] Address Unknown Phone Unavailable Care Team Providers Care Services Clerk Name Role Phone ALLYSSA ROLLINS Unavailable Allergies, Adverse Reactions, Alerts Substance Reaction Event Type Ibuprofen angioedema Drug Allergy Problems Problem Type Condition Code Onset Dates Condition Status Assessment Abnormal urine R82.90 Active Assessment Acute cystitis with hematuria N30.01 Active Assessment Iron deficiency E61.1 Active Medications Medication Code System Code Instructions Start Date End Date Status Dosage Polysaccharide Iron Complex [facility] [address]-05 150 MG Orally 2 times a day January 14, 2016 1 capsule Macrobid [facility] [address]-47 100 MG Orally every 12 hrs January 14, 2016 January 21, 2016 1 capsule with food Procedures Procedure Coding System Code Date URINE CULTURE/COLONY COUNT CPT-4 60058 January 14, 2016 Office Visit, Est Pt., Level 3 CPT-4 04877 January 14, 2016 URINALYSIS, AUTO, W/O SCOPE CPT-4 86157 January 14, 2016 Vital Signs Date/Time: January 14, 2016 Temperature 98.6 F Weight 148 lbs Height 5 ft 3 in in BMI 26.21 Index Blood Pressure Diastolic 68 mmHg Blood Pressure Systolic 96 mmHg Cardiac Monitoring Heart Rate 104 bpm Results Name Result Date Reference Range Unit Abnormality Flag UA LONG DIP (IN HOUSE) ----ROHIT + 20160114 ----NIT positive 20160114 ----SG 1.030 20160114 ----KET ++ 20160114 ----MULUGETA n/a 20160114 ----GLU neg 20160114 ----Odor none 20160114 ----pH 6.0 20160114 ----BLO large 20160114 ----URO n/a 20160114 ----Protein + 20160114 ----Lot # [id number] 20160114 ----Exp date 20160114 ----Clarity cloudy 20160114 ----Color dark yellow 20160114 Summary Purpose [employer] Submission
--- OUTSIDE RECORDS SUMMARY | 2018-07-09 18:54 | XMS REPORT ---
Author Author ARSEN ARREDONDO Organization [employer] Address Unknown Phone Unavailable Care Team Providers Care Guard Driver Name Role Phone ARSEN ARREDONDO CP Unavailable Allergies No Known Allergies Problems Problem Type Condition Code Onset Dates Condition Status Assessment Anemia due to other cause, not classified D64.89 Active Assessment Abnormal urine R82.90 Active Medications No Known Medications Procedures Procedure Coding System Code Date TEST FOR BLOOD, FECES CPT-4 00136 January 27, 2016 Results No Known Results Summary Purpose [employer] Submission
--- OUTSIDE RECORDS SUMMARY | 2018-07-09 18:54 | XMS REPORT ---
Author Author KAVIN Waller Organization [facility] Address Unknown Phone Unavailable Care Team Providers Care Client Service Professional Name Role Phone KAVIN Waller Unavailable Unavailable PROBLEMS No Known Problems ALLERGIES Substance Reaction Event Type Date Status Ibuprofen angioedema Drug Allergy Oct, Active SOCIAL HISTORY Never Assessed PLAN OF CARE Activity Details Follow Up prn Reason: VITAL SIGNS Height 5 ft 3 in in 2016-11-04 Weight 150.2 lbs 2016-11-04 Temperature 98.9 degrees Fahrenheit 2016-11-04 Heart Rate 112 bpm 2016-11-04 Respiratory Rate 20 2016-11-04 BMI 26.60 kg/m2 2016-11-04 Blood pressure systolic 110 mmHg 2016-11-04 Blood pressure diastolic 86 mmHg 2016-11-04 MEDICATIONS Medication Instructions Dosage Frequency Start Date End Date Duration Status PredniSONE 50 mg Orally Once a day 1 tablet 24h Oct, Oct, 05 days Active Tylenol 325 MG Orally every 6 hrs 2 tablets as needed 6h Active Azithromycin 250 MG Orally Once a day 2 tablets on the first day, then 1 tablet daily for 4 days 24h Oct, Oct, 5 day(s) Active RESULTS Name Result Date Reference Range INFLUENZA A & B (IN HOUSE) 2016-11-04 INFLUENZA A neg INFLUENZA B neg Control + Lot # [id number] Exp date 12/2016 PROCEDURES Procedure Date Ordered Result Body Site INFLUENZA ASSAY W/OPTIC Nov 04, 2016 IMMUNIZATIONS No Known Immunizations MEDICAL (GENERAL) HISTORY Type Description Date Medical History acid reflux Medical History seasonal allergies Medical History anemia
--- OUTSIDE RECORDS SUMMARY | 2018-07-09 18:55 | XMS REPORT ---
Author Author ALY GALICIA [facility] [employer] Address Unknown Phone Unavailable Care Team Providers Care Channel Marketing Program Manager Name Role Phone ALY GALICIA CP Unavailable Allergies No Known Allergies Problems Problem Type Condition Code Onset Dates Condition Status Assessment Encounter for immunization Z23 Active Medications No Known Medications Procedures Procedure Coding System Code Date SINGLE IMMUNIZATION ADMIN CPT-4 40515 Jul 23, 2015 FLUARIX QUAD (3 & UP)-GSK-2014 CPT-4 36757 Jul 23, 2015 Results No Known Results Immunizations Vaccine Administration Date FLUARIX QUAD (3 & UP)-GSK-2014Jul 23, 2015 Summary Purpose [employer] Submission
--- OUTSIDE RECORDS SUMMARY | 2018-07-09 18:55 | XMS REPORT ---
Author Author HOUSTON TYLER [facility] Address [address] [place] [address] Care Team Providers Care Special Events Manager Name Role Phone HOUSTON TYLER Unavailable PROBLEMS Type Condition ICD9-CM Code GJH13-RB Code Onset Dates Condition Status SNOMED Code Problem Anxiety F41.9 Active [id number] ALLERGIES Substance Reaction Event Type Date Status Ibuprofen angioedema Drug Allergy Mar, Active ENCOUNTERS Encounter Location Date Diagnosis [facility] [address] [place] [address] [place] [phone] Sep, Multiple complaints R68.89 [facility] [address] [place], [place] [address] [place] [address] Jun, Urinary frequency R35.0 ; Multiple complaints R68.89 and Anxiety F41.9 [facility] [address] [place] [address] [place] [address] Mar, Lump of left breast N63 ; Well woman exam Z01.419 and Uterine leiomyoma, unspecified location D25.9 [facility] [address] [place] [address] Nov, Bronchitis J40 [facility] [address] [place] [address] [place] [phone] 10 Oct, 2016 [facility] [address] [id number] [place] [address] 08 Oct, 2016 Sore throat J02.9 and Acute upper respiratory infection J06.9 [facility] [id number] [place] [phone] Jul, Encounter for immunization Z23 [facility] [id number] [place] [id number] Jun, Dizziness R42 [place] [address] [id number], [place] [id number] Jun, Dizziness R42 and Anemia due to other cause, not classified D64.89 [place] [address] [id number][place] [phone] January, Anemia due to other cause, not classified D64.89 and Abnormal urine R82.[address] [id number], [place] [id number] Dec, [place] [address] [id number], [place] [phone] Dec, Abnormal urine R82.90 ; Acute cystitis with hematuria N30.01 and Iron deficiency E61.1 [place] [address] [id number], [place] [id number] Dec, [place] [address] [address] [facility] [id number], [place] [phone] Dec, Anemia due to other cause, not classified D64.89 [place] [address] [address] [facility] [id number], [place] [id number] Dec, [place] [address] [id number], [place] [id number] Dec, Anemia due to other cause, not classified D64.89 [place] [address] [id number], [place] [id number] Dec, [place] [address] [id number], [place] [id number] Dec, Anemia due to other cause, not classified D64.89 [place] [address] [place] [id number], [place] [phone] Dec, Gastroesophageal reflux disease, esophagitis presence not specified K21.9 and Anemia due to other cause, not classified D64.89 [place] [address] [id number], [place] [phone] Nov, Prolonged menstrual cycle N92.1 ; Dizziness R42 ; GERD ( gastroesophageal reflux disease) K21.9 ; Chest pain R07.9 ; Fatigue R53.83 and Chills (without fever) R68.83 [place] [address] [id number], [place] [phone] Nov, Prolonged menstrual cycle N92.1 ; Dizziness R42 ; GERD ( gastroesophageal reflux disease) K21.9 ; Chest pain R07.9 ; Fatigue R53.83 and Chills (without fever) R68.83 [place] [address] [id number], [place] [phone] Jun, Encounter for immunization Z23 [address] [id number], [place] [id number] Jun, Allergic rhinitis, unspecified allergic rhinitis type J30.9 and Post-nasal drip R09.[address] [id number] [id number] Apr, Chest pain 786.50 and GERD (gastroesophageal reflux disease) 530.81 [place] [address] [place] [phone] Feb, Well woman exam V70.0 ; Pap smear for cervical cancer screening V76.2 and Breast cancer screening V76.[address] [phone] Feb, Encounter to establish care V65.8 IMMUNIZATIONS No Known Immunizations SOCIAL HISTORY Never Assessed REASON FOR VISIT Annual physical (female) Karen,RN PLAN OF CARE Activity Details Follow Up prn Reason: VITAL SIGNS Height 5 ft 3 in in 2017-04-21 Weight 153.0 lbs 2017-04-21 Temperature 98.5 degrees Fahrenheit 2017-04-21 Heart Rate 83 bpm 2017-04-21 Respiratory Rate 18 2017-04-21 BMI 27.10 kg/m2 2017-04-21 Blood pressure systolic 118 mmHg 2017-04-21 Blood pressure diastolic 70 mmHg 2017-04-21 MEDICATIONS Medication Instructions Dosage Frequency Start Date End Date Duration Status Tylenol 325 MG Orally every 6 hrs 2 tablets as needed 6h Active RESULTS Name Result Date Reference Range Mammogram Dx, Bilateral 2017-05-04 PROCEDURES Procedure Date Ordered Result Body Site PELVIC EXAM UNDER ANESTHESIA April 21, 2017 INSTRUCTIONS MEDICATIONS ADMINISTERED No Known Medications MEDICAL (GENERAL) HISTORY Type Description Date Medical History acid reflux Medical History seasonal allergies Medical History anemia Hospitalization History Abnormal vaginal bleeding
--- OUTSIDE RECORDS SUMMARY | 2018-07-09 18:55 | XMS REPORT | Continuity of Care Document ---
Author Author [facility] Organization [facility] Address [facility] [address] [place] [id number] Phone Unavailable Support Name Relationship Address Phone SUKHJINDER SIMPSON DO Caregiver [address] [place] [address] RIKA MCGUIRE Next Of Kin [address] [place] [address] Insurance Providers Payer Name Policy Number Subscriber Name Relationship Blue Cross/Blue Shield [id number] Ashley Mcguire D 17 Self / Same As Patient Advance Directives Directive Response Recorded Date/Time Advance Directives No 01/10/16 2:08pm Living Will No 01/10/16 2:08pm Health Care Proxy No 01/12/16 1:28pm Power of It Operations Manager for Health Care No 01/10/16 2:08pm Organ, Tissue, or Eye Donor No 01/10/16 2:08pm Do you have a signed organ donor card? No 01/10/16 2:08pm Chief Complaint and Reason for Visit Chief Complaint ANEMIA Reason for Visit [id number] Shortness of breath Vaginal bleeding Problems Active Problems Medical Problem Onset Date Status Chest pressure Unknown Acute Shortness of breath Unknown Acute Vaginal bleeding Unknown Acute Medications No medication information available. Social History Social History Problem Response Recorded Date/Time Tobacco Use Denies Use 01/12/2016 2:21pm Alcohol Use none 01/12/2016 2:21pm Drug Use none 01/12/2016 2:21pm Employment Employed 01/12/2016 2:21pm Hospital Discharge Instructions No hospital discharge instructions. Plan of Care Discharge Date 01/12/16 3:30pm Condition at Discharge Stable Instructions/Education Provided Dysfunctional Uterine Bleeding (ED) Prescriptions See Medication Section Referrals MELVI ZAMARRIPA D.O. - Atul Muro M.D. - Functional Status Query Response Date Recorded Patient Behavior Fatigued Fearful Appropriate Dependent January 12, 2016 1:27pm Allergies, Adverse Reactions, Alerts No allergy information available. Immunizations Name Given Type Hx Influenza Vaccination Y FALL 2014 Historical Vital Signs Acute Vital Signs Vital Response Date/Time Temperature (Fahrenheit) 98.7 degrees F (97.6 - 99.5) 01/12/2016 1:30pm Temperature Source Temporal Artery 01/12/2016 1:30pm Pulse Rate (adult) 96 bpm (60 - 90) 01/12/2016 1:30pm Respiratory Rate 18 bpm (12 - 24) 01/12/2016 1:30pm Blood Pressure 110/81 mm Hg 01/12/2016 1:30pm O2 Sat by Pulse Oximetry 100 % (90 - 100) 01/12/2016 1:30pm Oxygen Delivery Method 01/12/2016 1:30pm Height 5 ft 4 in Weight 165 lb Body Mass Index 28.0 kg/m^2 Results Laboratory Results Test Name Result Units Flags Reference Collection Date/Time Result Date/ Time Comments White Blood Count 3.5 K/uL L 4.8-10.8 01/12/2016 2:1001/12/2016 2: 19pm Red Blood Count 4.04 M/uL L 4.20-5.40 01/12/2016 2:1001/12/2016 2: 19pm Hemoglobin 11.3 gm/dL L 12.0-16.0 01/12/2016 2:1001/12/2016 2:19pm Hematocrit 34.7 % L 37.0-47.0 01/12/2016 2:1001/12/2016 2:19pm Mean Corpuscular Volume 86.0 fL 81.0-99.0 01/12/2016 2:1001/12/2016 2:19pm Mean Corpuscular Hemoglobin 27.9 pg 27.0-31.0 01/12/2016 2:102015 2:19pm Mean Corpuscular Hemoglobin Concent 32.6 g/dL 30.0-37.0 01/12/2016 2: 1001/12/2016 2:19pm Red Cell Distribution Width 12.8 % 11.5-14.5 01/12/2016 2:102015 2:19pm Platelet Count 236 K/uL 130-400 01/12/2016 2:1001/12/2016 2:19pm Mean Platelet Volume 8.6 fL 7.4-10.4 01/12/2016 2:1001/12/2016 2: 19pm Neutrophils (%) (Auto) 75.3 % H 42.2-75.2 01/12/2016 2:01/12/2016 2 :19pm Lymphocytes (%) (Auto) 18.1 % L 20.5-51.1 01/12/2016 2:01/12/2016 2 :19pm Monocytes (%) (Auto) 4.6 % 1.7-9.3 01/12/2016 2:01/12/2016 2:19pm Eosinophils (%) (Auto) 1.1 % 0-3 01/12/2016 2:01/12/2016 2:19pm Basophils (%) (Auto) 0.8 % 0.0-1.0 01/12/2016 2:01/12/2016 2:19pm Neutrophils # (Auto) 2.6 K/uL 2.0-6.9 01/12/2016 2:01/12/2016 2: 19pm Lymphocytes # (Auto) 0.6 K/uL L 1.2-3.4 01/12/2016 2:01/12/2016 2: 19pm Monocytes # (Auto) 0.2 K/uL 0.1-0.6 01/12/2016 2:01/12/2016 2: 19pm Eosinophils # (Auto) 0.0 K/uL 0.0-0.7 01/12/2016 2:01/12/2016 2: 19pm Basophils # (Auto) 0.0 K/uL 0.0-0.2 01/12/2016 2:01/12/2016 2: 19pm Neutrophils 70.0 % H 50-65 01/12/2016 2:01/12/2016 2:49pm Band Neutrophils 4.0 % 0-5 01/12/2016 2:1001/12/2016 2:49pm Lymphocytes (Manual) 22.0 % L 25-40 01/12/2016 2:01/12/2016 2:49pm Monocytes (Manual) 4.0 % 4-10 01/12/2016 2:01/12/2016 2:49pm Prothrombin Time 10.6 SECONDS 9.10-11.20 01/12/2016 2:1001/12/2016 2 :49pm Prothromb Time International Ratio 1.05 0.9-1.1 01/12/2016 2:10 2:49pm THERAPEUTIC RANGE 1.0 - 3.0 PLEASE NOTE REFERENCE RANGE Random Glucose 138 mg/dL H 70-110 01/12/2016 2:01/12/2016 3:02pm Blood Urea Nitrogen 11 mg/dL 7-18 01/12/2016 2:01/12/2016 3:02pm Creatinine 0.8 mg/dL 0.55-1.02 01/12/2016 2:01/12/2016 3:02pm Sodium Level 142 mEq/L 136-145 01/12/2016 2:01/12/2016 3:02pm Potassium Level 3.9 mEq/L 3.5-5.0 01/12/2016 2:01/12/2016 3:02pm Chloride Level 106 mEq/L 98-107 01/12/2016 2:01/12/2016 3:02pm Carbon Dioxide Level 23.4 mEq/L 21-32 01/12/2016 2:01/12/2016 3: 02pm Calcium Level 8.5 mg/dL L 8.8-10.5 01/12/2016 2:01/12/2016 3:02pm Magnesium Level 2.0 mg/dL 1.8-2.4 01/12/2016 2:01/12/2016 3:02pm Total Protein 7.1 gm/dL 6.4-8.2 01/12/2016 2:01/12/2016 3:02pm Albumin 3.4 gm/dL 3.4-5.0 01/12/2016 2:01/12/2016 3:02pm Total Bilirubin 0.43 mg/dL 0.00-1.00 01/12/2016 2:01/12/2016 3: 02pm Aspartate Amino Transf (AST/SGOT) 20 U/L 15-37 01/12/2016 2:2015 3:02pm Alanine Aminotransferase (ALT/SGPT) 30 U/L 12-78 01/12/2016 2:10pm 3:02pm Total Alkaline Phosphatase 88 U/L 46-116 01/12/2016 2:10pm 01/12/2016 3 :02pm Total Creatine Kinase 50 U/L 26-192 01/12/2016 2:10pm 01/12/2016 3: 02pm B-Type Natriuretic Peptide 16 pg/mL 10-146 01/12/2016 2:10pm 2015 3:02pm <50 years of age NT-proBNP values <300 pg/mL have a 99% negative predictive value for excluding acute congestive heart failure (CHF). A cutoff of 1,200 pg/mL for patients with an eGFR <60 yields a diagnostic sensitivity and specificity of 89% and 72% for acute CHF. NT-proBNP values >450 pg/mL are consistent with CHF in adults under 50 years of age. Creatine Kinase MB < 0.5 NG/ML 0-3.6 01/12/2016 2:10pm 01/12/2016 3: 02pm Myoglobin 19.0 NG/ML 10.5-92.5 01/12/2016 2:1001/12/2016 3:02pm Troponin I 0.0 NG/ML 0.0-0.2 01/12/2016 2:10pm 01/12/2016 3:02pm Urine Color RED H YELLOW 01/12/2016 2:30pm 01/12/2016 2:56pm Urine Appearance CLOUDY H CLEAR 01/12/2016 2:30pm 01/12/2016 2:56pm Urine Glucose (UA) NEGATIVE mg/dL NEGATIVE 01/12/2016 2:30pm 2015 2:56pm Urine Bilirubin NEGATIVE NEGATIVE 01/12/2016 2:30pm 01/12/2016 2: 56pm Urine Ketones NEGATIVE mg/dL NEGATIVE 01/12/2016 2:30pm 01/12/2016 2: 56pm Urine Specific [place] 1.025 1.010-1.025 01/12/2016 2:30pm 2015 2:56pm Urine Occult Blood 3+ (Large) H NEGATIVE 01/12/2016 2:30pm 01/12/2016 2:56pm URINE CULTURE ORDERED PER MEDICAL STAFF-APPROVED PROTOCOL FOR LAB. Urine pH 6.5 5.0-8.0 01/12/2016 2:30pm 01/12/2016 2:56pm Urine Protein 1+ (30 mg/dl) mg/dL H NEGATIVE 01/12/2016 2:30pm 2015 2:56pm Urine Urobilinogen 2.0 mg/dL E.U./dL H 0.2-1.0 01/12/2016 2:30pm 2015 2:56pm Urine Nitrate POSITIVE H NEGATIVE 01/12/2016 2:30pm 01/12/2016 2:56pm Urine Leukocyte Esterase NEGATIVE NEGATIVE 01/12/2016 2:30pm 2015 2:56pm Urine RBC TOO NUMEROUS TO CNT. /hpf H 0 01/12/2016 2:30pm 01/12/2016 2: 58pm Urine WBC 1-2 /hpf 0-4 01/12/2016 2:30pm 01/12/2016 2:58pm Urine Squamous Epithelial Cells 5-8 /hpf 0-1 01/12/2016 2:30pm 2015 2:58pm Urine Bacteria 2+ H NEGATIVE 01/12/2016 2:30pm 01/12/2016 2:58pm Urine HCG, Qualitative NEGATIVE NEG 01/12/2016 2:30pm 01/12/2016 2: 58pm Glomerular Filtration Rate Calc 82.1 mL/min 01/12/2016 2:10pm 2015 3:02pm Procedures Procedure Status Date Provider(s) Portable x-ray of chest Completed 01/12/16 SUKHJINDER SIMPSON DO Encounters Encounter Location Arrival/Admit Date Discharge/Depart Date Attending Provider Departed Emergency Room [place] 01/12/16 1:31pm 01/12/16 3:30pm SUKHJINDER SIMPSON DO Recent Diagnosis
--- OUTSIDE RECORDS SUMMARY | 2018-07-09 18:55 | XMS REPORT | Continuity of Care Document ---
Author Author [facility] Address Unknown Phone Unavailable Allergies Active Description Code Type Severity Reaction Onset Reported/Identified Relationship to Patient Clinical Status Yes NSAIDS Drug Allergy N/A N/A Medications There is no data. Problems Date Dx Coded Attending Type Code Diagnosis Diagnosed By 04/26/2018 P [id number] Unspecified lump in the left breast, unspecified quadrant Procedures There is no data. Results Test Result Range CBC - 10/20/17 10:28 WHITE BLOOD CELL COUNT 5.2 Thousand/uL 3.8-10.8 RED BLOOD CELL COUNT 4.55 Million/uL 3.80-5.10 HEMOGLOBIN 13.0 g/dL 11.7-15.5 HEMATOCRIT 39.5 % 35.0-45.0 MCV 86.8 fL 80.0-100.0 MCH 28.6 pg 27.0-33.0 MCHC 32.9 g/dL 32.0-36.0 RDW 13.9 % 11.0-15.0 PLATELET COUNT 216 Thousand/uL 140-400 MPV 9.9 fL 7.5-12.5 ABSOLUTE NEUTROPHILS 2974 cells/uL [id number] ABSOLUTE LYMPHOCYTES 1856 cells/uL 850-3900 ABSOLUTE MONOCYTES 250 cells/uL 200-950 ABSOLUTE EOSINOPHILS 88 cells/uL 15-500 ABSOLUTE BASOPHILS 31 cells/uL 0-200 NEUTROPHILS 57.2 % NRG LYMPHOCYTES 35.7 % NRG MONOCYTES 4.8 % NRG EOSINOPHILS 1.7 % NRG BASOPHILS 0.6 % NRG CULTURE, URINE - 02/10/18 10:43 CULTURE, URINE, ROUTINE SEE NOTE NRG LIPASE - 06/15/18 17:45 LIPASE 29 U/L 7-60 AMYLASE - 06/15/18 17:45 AMYLASE 40 U/L 21-101 Encounters ACCT No. Visit Date/Time Discharge Status Pt. Type Provider Facility Loc./Unit Complaint [id number] 07/06/2018 16:57:36 07/06/2018 23:59:59 [facility] Outpatient Abhishek Benoit [id number] 07/14/2014 11:31:55 07/14/2014 23:59:59 [facility] Outpatient Duy Spence [id number] 04/14/2018 13:20:00 04/14/2018 23:59:59 [facility] Outpatient MARIANNE JOSE NAVAS [id number] 06/15/2018 17:00:00 Document Registration [id number] 02/10/2018 09:40:00 Document Registration [id number] 10/20/2017 10:20:00 Document Registration [id number] 04/26/2018 09:12:00 Document Registration [id number] 05/07/2016 18:18:58 05/07/2016 18:18:58 Outpatient [facility]
[2018-07-09] MEDS ORDERED: RT-ALBUINH IH (19:37)
[2018-07-09] MEDS ORDERED: AMOX250C PO (19:37)
[2018-07-09] MEDS ORDERED: PANT40TA3 PO (19:37)
[2018-07-09] MEDS ORDERED: ONDANSETRON 4 MG (ZOFRAN) ORAL DISSOLVE TAB SL STA (19:51)
[2018-07-09] MEDS ORDERED: FAMOTIDINE 20 MG (PEPCID) TABLET PO STA (19:51)
[2018-07-09] MEDS ORDERED: LIDOCAINE 2% VISCOUS 15 ML UDC PO ONE (20:00)
[2018-07-09] MEDS ORDERED: ANTACID SUSP 30 ML UDC (MYLANTA) PO ONE (20:00)
--- NOTE | 2018-07-09 20:00 | ED GI ---
General Chief Complaint: Respiratory Problems Stated Complaint: SOB Nursing Triage Note: PT CO OF SOA STATES STARTED THIS AM THEN BETTER THEN WORSE ABOUT 1830. PT STATES HAS SOA. PT CALLED ON PHONE STATES HAS HAPPENED BEFORE LAST WEEK AT [place] AND PT GIVEN GI COCKTAIL. PT IS CURRENTLY HYPERVENTILATING, STATES HAS AND FEET TINGLING. DAUGHTER AT SIDE. PT TO MONITOR. PT HAS HX OF ACID REFLUX Sepsis Screen: No Definite Risk Source of Information: Patient, Family (daughter) Exam Limitations: No Limitations History of Present Illness Date Seen by Provider: Jul 09, 2018 Time Seen by Provider: 19:46 Initial Comments The patient presents to the ER by private conveyance with her daughter and a chief complaint that this morning she was having some burning pressure in her chest and just got worse after taking her amoxicillin that she was recently put on for H. pylori. She feels like she has a spasm or something tight in the like a ball in her chest. She was seen at [place] [facility] for this week or so ago and diagnosed with esophageal problems and gastritis and sent to the surgeon who has set her up to have a barium swallow study this Wednesday, 2 days from now. She says the discomfort and pain in her chest is so much that she can't stand it. They put her on pantoprazole and 2 antibiotics. No Carafate. She uses Maalox and in the morning and that helped a little bit but she's not used any more today. She has no primary history of coronary or respiratory disease. No asthma COPD or smoking. No diabetes hypothyroidism, hypertension, hypercholesterolemia or primary family history of coronary artery disease before the age of 60. She describes her pain as a tight ball at the top of her chest that does not radiate. She has some nausea but no vomiting. She had a EGD done 2 or 3 years ago but no mention of dilatation. Allergies and Home Medications Allergies Coded Allergies: No Known Drug Allergies (Unverified , 07/09/18) Home Medications Albuterol Sulfate 1 Puff Puff, 2 PUFF IH Q4H, (Reported) 1 PUFF = 90 MCG Pantoprazole Sodium 40 Mg Tablet.dr, 40 MG PO DAILY, (Reported) Patient Home Medication List Home Medication List Reviewed: Yes Review of Systems Review of Systems Constitutional: No chills, No diaphoresis EENTM: No Blurred Vision, No Double Vision Respiratory: Denies Cough, Denies Orthopnea; Shortness of Air Cardiovascular: See HPI, Chest Pain Gastrointestinal: Denies Abdomen Distended, Denies Abdominal Pain Genitourinary: Denies Burning, Denies Discharge Musculoskeletal: No back pain, No joint pain Skin: No pruritus, No rash Past Ycqrnxx-Lxzchk-Offcni Hx Patient Social History Alcohol Use: Denies Use Recreational Drug Use: No Smoking Status: Never a Smoker Recent Foreign Travel: No Contact w/Someone Who Travel: No Recent Infectious Disease Expo: No Recent Hopitalizations: No Seasonal Allergies Seasonal Allergies: No Past Medical History Surgeries: No Respiratory: No Cardiac: No Neurological: No Genitourinary: No Gastrointestinal: Yes (H-PYLORI) Gastroesophageal Reflux Endocrine: No HEENT: No Cancer: No Psychosocial: No Integumentary: No Physical Exam Vital Signs Vital Signs - First Documented 07/09/18 18:50 Temp 98.1 Pulse 81 Resp 28 B/P (MAP) 145/92 (109) Pulse Ox 100 Capillary Refill : Less Than 3 Seconds Height/Weight/BMI Height: 5'4.00" Weight: 154lbs. oz. [id number]; BMI Method:Stated General Appearance: WD/WN, no apparent distress, other (anxious) HEENT: PERRL/EOMI, pharynx normal Neck: non-tender, normal inspection Respiratory: chest non-tender, lungs clear, normal breath sounds, no respiratory distress, no accessory muscle use Cardiovascular: normal peripheral pulses, regular rate, rhythm Gastrointestinal: normal bowel sounds, non tender, soft Extremities: normal inspection, normal capillary refill Progress/Results/Core Measures Results/Orders My Orders Orders - ELSA CROW Ondansetron Oral Dissolve Tab (Zofran (07/09/18 19:51) Lidocaine 2% Viscous 15 Ml (Xylocaine Vi (07/09/18 20:00) Famotidine Tablet (Pepcid Tablet) (07/09/18 19:51) Antacid Suspension (Mylanta Suspension (07/09/18 20:00) Medications Given in ED Current Medications Medications Dose Ordered Sig/Yoandy Route Start Time Stop Time Status Last Admin Dose Admin Al Hydrox/Mg Hydrox/Simethicone 30 ml ONCE ONCE PO 07/09/18 20:00 07/09/18 20:01 DC 07/09/18 20:08 30 ML Lidocaine HCl 15 ml ONCE ONCE PO 07/09/18 20:00 07/09/18 20:01 DC 07/09/18 20:08 15 ML Vital Signs/I&O 07/09/18 18:50 Temp 98.1 Pulse 81 Resp 28 B/P (MAP) 145/92 (109) Pulse Ox 100 Blood Pressure Mean: 109 Progress Progress Note #1: Time: 20:58 Progress Note Patient's having quite a bit of anxiety that was been diagnosed as sounds like esophageal spasms and GERD. Try GI cocktail and some Pepcid and if we can get her symptoms feeling better we will probably put her out on some Carafate in addition. She says the Mylanta helps. No real risk for heart disease. She does not have any evidence on her vital signs of any elevated heart rate, decreased oxygen saturation below 100%. After giving her some of the GI cocktail she is slowly sipping it down and says it makes her tongue and esophagus numb and it is decreasing her pain and discomfort in her chest. Progress Note #2: Time: 21:25 Progress Note The patient's pain is relieved by the GI cocktail and Pepcid. We will set her up with some Carafate outpatient and keep her appointment for a barium swallow study Wednesday. Departure Impression Primary Impression: GERD with esophagitis Disposition: HOME, SELF-CARE Condition: Stable Departure-Patient Inst. Decision time for Depature: 21:26 Patient Instructions: Acid Reflux (Gastroesophageal Reflux Disease), Adult (DC) Add. Discharge Instructions: occupational therapy asst the Carafate and start taking it 30 minutes before all 3 meals and at bedtime for the next 2 weeks. Keep your scheduled appointments with the surgeon. All discharge instructions reviewed with patient and/or family. Voiced understanding. Scripts Sucralfate (Carafate) 1 Gm Tablet 1 GM PO QIDACHS for 14 Days, #56 TAB 0 Refills Prov: ELSA CROW 07/09/18 ELSA CROW Jul 09, 2018 20:00
[2018-07-09] MEDS ORDERED: SUCR1TAB36 PO (21:29)
[2018-07-09 21:41] VITALS: BP 125/78
== END 2018-07-09 21:47 | disposition home or self-care (01) ==
LOC: ER 18:49
DX: K21.0 Gastro-esophageal reflux disease with esophagitis (principal); Z79.51 Long term (current) use of inhaled steroids; Z87.19 Personal history of other diseases of the digestive system
CPT/HCPCS: 99283